=== PATIENT | female | born 1970 | race African-American/Black ===

== ENCOUNTER 2016-11-28 12:49 | Emergency (ER) | payer SELFPAY ==
[~2016-11-28] VITALS: Ht 165.1 cm; Wt 55.0 kg
[2016-11-28 12:50] VITALS: BP 149/99
== END 2016-11-28 14:48 | disposition home or self-care (01) ==
LOC: ER 12:50
DX: G89.29 Other chronic pain (principal); M79.601 Pain in right arm; Z87.828 Personal history of other (healed) physical injury and trauma; Z98.890 Other specified postprocedural states; M19.021 Primary osteoarthritis, right elbow
CPT/HCPCS: 73070; 99284